=== PATIENT | female | born 1970 | race Caucasian/White ===

== ENCOUNTER 2019-10-17 01:58 | Inpatient (IN) ==
[2019-10-17] MEDS ORDERED: ALUM/MAG/SIMETH/LIDO VISC 1:1 30 ML BOTTLE PO STA (02:34)
[2019-10-17] MEDS ORDERED: ONDANSETRON 4 MG/2 ML VIAL IV STA ×2 (02:34→06:45)
[2019-10-17] MEDS ORDERED: HYDROmorphone 2 MG/1 ML VIAL IV STA ×3 (02:34→06:45)
[2019-10-17] MEDS ORDERED: SODIUM CHLORIDE 0.9% 1,000 ML IV STA (02:34)
[2019-10-17] MEDS ORDERED: PANTOPRAZOLE 40 MG VIAL IV STA (02:34)
[2019-10-17 03:01] LABS: Basophils # 0.1 10*3/uL (0.0-0.2); Basophils % 0.6 % (0.0-0.8); Eosinophils # 0.4 10*3/uL (0.0-0.87); Eosinophils % 1.4 % (0.00-10.9); Hematocrit 41.1 VOL% (35.7-47.0); Hemoglobin 14.4 GM/DL (12.0-16.0); Immature Granulocytes % 0.5 %; Immature Granulocytes Absolute 0.13 #; Lymphocytes # 3.6 10*3/uL (1.4-4.0); Lymphocytes % 14.3 % (21.3-54.2); Mean Corpuscular Volume 92.4 FL (87-102); Monocytes % 6.6 % (1.7-12.7); Neutrophils % 76.6 % (38.7-73.9); Platelet Count 186 T/CUMM (130-400); Red Blood Count 4.45 MC/CUMM (3.8-5.5); Red Cell Distribution Width 13.2 % (9.3-17.3)
[2019-10-17] MEDS ORDERED: VANCOMYCIN INJ 1,000 MG in SODIUM CHLORIDE 0.9% 250 ML IV STA (03:09)
[2019-10-17 03:35] LABS: Apearance,Urine CLEAR (Clear); Bacteria,Urine Occasional /HPF (Few); Blood, Urine Negative (Negative); Glucose,Urine (UA) >=500 mg/dL (Negative); Hyaline Casts,Urine 6 /LPF (0-3); Ketones,Urine 5 mg/dL (Negative); Mucus,Urine Occasional /LPF (Occasional); Nitrite,Urine Negative (Negative); Protein,Urine 100 MG/DL; RBC,Urine 2 /HPF (0-4); Squamous Epithelial Cell,Urine Occasional /HPF (0-10); Urine Color Yellow (Yellow); Urine Specific Gravity 1.036 (1.001-1.035); Urine Urobilinogen < 2.0 EU/DL (0.2-1.0); WBC,Urine 2 /HPF (0-6)
[2019-10-17 03:42] LABS: Bilirubin,Urine Small mg/dL (Negative)
[2019-10-17 03:53] LABS: Albumin 2.9 G/DL (3.4-5.0); Bilirubin,Total 0.8 MG/DL (0.2-1.0); Calcium 8.1 MG/DL (8.5-10.1); Osmolality,Calculated 262.9 MOS/KG (273-304); Total Protein 7.8 G/DL (6.4-8.3)
[2019-10-17] MEDS ORDERED: MAGNESIUM SULF RIDER 2 GM in PREMIX 1 EACH IV STA (03:58)
[2019-10-17] MEDS ORDERED: INSULIN REGULAR 100 UNIT/ML SUBCUT STA (04:44)
[2019-10-17] MEDS ORDERED: hydrALAZINE 20 MG/1 ML VIAL IV STA ×2 (04:45→04:59)
[2019-10-17 05:05] LABS: Eosinophils 2 % (0-10); Hypochromasia 2+; Lymphocytes 18 % (20-55); Platelet Estimate Normal; Segmented Neutrophils 73 % (50-85); Total Cells Counted 100
[2019-10-17] MEDS ORDERED: hydrALAZINE 20 MG/1 ML VIAL IV PRN (06:36)
[2019-10-17] MEDS ORDERED: GLUCAGON 1 MG VIAL IM PRN (06:36)
[2019-10-17] MEDS ORDERED: DEXTROSE 50% 25 GM/50 ML VIAL IV PRN ×2 (06:36→08:46)
[2019-10-17] MEDS ORDERED: SODIUM CHLORIDE 0.9% 1,000 ML IV SCH (07:00)
[2019-10-17 07:04] LABS: VLDL CHOLESTEROL 1024.4 MG/DL
[2019-10-17 07:06] LABS: Risk Ratio 13.72
[2019-10-17] MEDS: ENOXAPARIN 40 MG/0.4 ML SYRINGE SUBCUT SCH (08:30)
[2019-10-17] MEDS ORDERED: LACTATED RINGERS 1,000 ML IV SCH (08:30)
[2019-10-17] MEDS ORDERED: MAGNESIUM SULF RIDER 4 GM in PREMIX 1 EACH IV PRN (08:46)
[2019-10-17] MEDS ORDERED: ESTRADIOL 1 MG TABLET PO SCH (09:30)
[2019-10-17 09:52] LABS: Basophils # 0.1 10*3/uL (0.0-0.2); Basophils % 0.3 % (0.0-0.8); Eosinophils # 0.1 10*3/uL (0.0-0.87); Eosinophils % 0.4 % (0.00-10.9); Hematocrit 39.1 VOL% (35.7-47.0); Hemoglobin 13.6 GM/DL (12.0-16.0); Immature Granulocytes % 0.6 %; Immature Granulocytes Absolute 0.15 #; Lymphocytes # 2.4 10*3/uL (1.4-4.0); Lymphocytes % 8.7 % (21.3-54.2); Mean Corpuscular HGB Conc 34.8 GM/DL (32-36); Mean Corpuscular Volume 93.1 FL (87-102); Monocytes % 6.8 % (1.7-12.7); Neutrophils % 83.2 % (38.7-73.9); Platelet Count 186 T/CUMM (130-400); Red Cell Distribution Width 13.2 % (9.3-17.3); White Blood Count 27.1 T/CUMM (4-12)
[2019-10-17] MEDS ORDERED: INSULIN REGULAR 100 UNIT/ML SUBCUT SCH (10:00)
[2019-10-17 10:14] LABS: Eosinophils 1 % (0-10); Lymphocytes 10 % (20-55); Platelet Estimate Adequate; Segmented Neutrophils 79 % (50-85); Total Cells Counted 100
[2019-10-17] MEDS: THYROID 60 MG TABLET PO SCH (10:22)
[2019-10-17] MEDS: CIPROFLOXACIN INJ 400 MG in PREMIX 1 EACH IV SCH ×2 (10:22→22:20)
[2019-10-17] MEDS: ATORVASTATIN 40 MG TABLET PO SCH (10:23)
[2019-10-17] MEDS: FENOFIBRATE 160 MG TABLET PO SCH (10:23)
[2019-10-17] MEDS: HYDROmorphone 2 MG/1 ML VIAL IV PRN ×5 (10:24→23:20)
[2019-10-17] MEDS: OMEGA 3 ACID ETHYL ESTERS 1 GM CAPSULE PO SCH ×2 (10:24→20:24)
[2019-10-17] MEDS: ONDANSETRON 4 MG/2 ML VIAL IV PRN ×4 (10:25→23:30)
[2019-10-17] MEDS: INSULIN REGULAR DRIP 100 ML IV SCH (11:20)
[2019-10-17] MEDS: MEPERIDINE 25 MG/1 ML VIAL IV PRN ×3 (11:30→19:31)
[2019-10-17 11:55] LABS: ABG Base Excess -5.8 MMOL/L (-2.5-2.5); ABG HCO3 19.7 MMOL/L (20-26); ABG Oxygen Saturation 98.9 % (95-100); ABG PCO2 34.1 MM HG (35-48); ABG PH 7.353 (7.35-7.45); ABG TCO2 16.7 MMOL/L (23-27)
[2019-10-17] MEDS: metroNIDAZOLE INJ 500 MG in PREMIX 1 EACH IV SCH ×2 (11:58→18:19)
[2019-10-17] MEDS: carisoprodoL 350 MG TABLET PO SCH ×2 (14:14→20:25)
[2019-10-17] MEDS: DEXTROSE 5% LACTATED RINGERS 1,000 ML IV SCH ×3 (14:25→22:35)
[2019-10-17] MEDS ORDERED: INSULIN REGULAR 100 UNIT/ML IV ONE (16:11)
[2019-10-17 18:28] LABS: Albumin 2.5 G/DL (3.4-5.0); Bilirubin,Total 0.6 MG/DL (0.2-1.0); Calcium 7.5 MG/DL (8.5-10.1); Osmolality,Calculated 262.9 MOS/KG (273-304); Total Protein 6.6 G/DL (6.4-8.3)
[2019-10-17] MEDS: POTASSIUM CHLORIDE RIDER 10 MEQ in PREMIX 1 EACH IV PRN ×2 (19:31→21:31)
[2019-10-17] MEDS ORDERED: PROGESTERONE MICRONIZED 200 MG PO SCH (21:00)
[2019-10-17] MEDS ORDERED: POTASSIUM CHLORIDE 20 MEQ TABLET PO ONE (22:01)
[2019-10-18] MEDS: HYDROmorphone 2 MG/1 ML VIAL IV PRN ×7 (01:45→23:46)
[2019-10-18] MEDS: metroNIDAZOLE INJ 500 MG in PREMIX 1 EACH IV SCH ×3 (02:40→17:10)
[2019-10-18] MEDS: ONDANSETRON 4 MG/2 ML VIAL IV PRN ×4 (03:50→19:36)
[2019-10-18 03:53] LABS: Basophils # 0.1 10*3/uL (0.0-0.2); Basophils % 0.2 % (0.0-0.8); Eosinophils # 0.1 10*3/uL (0.0-0.87); Eosinophils % 0.2 % (0.00-10.9); Hematocrit 33.7 VOL% (35.7-47.0); Hemoglobin 11.4 GM/DL (12.0-16.0); Immature Granulocytes % 0.5 %; Lymphocytes # 2.4 10*3/uL (1.4-4.0); Lymphocytes % 11.6 % (21.3-54.2); Mean Corpuscular HGB Conc 33.8 GM/DL (32-36); Mean Corpuscular Volume 91.6 FL (87-102); Neutrophils % 82.5 % (38.7-73.9); Platelet Count 127 T/CUMM (130-400); Red Blood Count 3.68 MC/CUMM (3.8-5.5); Red Cell Distribution Width 13.5 % (9.3-17.3); White Blood Count 20.9 T/CUMM (4-12)
[2019-10-18] MEDS: MEPERIDINE 25 MG/1 ML VIAL IV PRN (04:10)
[2019-10-18 04:17] LABS: Risk Ratio 9.61
[2019-10-18 04:20] LABS: Albumin 1.9 G/DL (3.4-5.0); Alkaline Phosphatase 97 U/L (45-117); Blood Urea Nitrogen 5 MG/DL (7-18); Calcium 6.8 MG/DL (8.5-10.1); Estimated Glom Filtration Rate 106 ML/MIN; Glucose 461 MG/DL (74-106); Osmolality,Calculated 274.9 MOS/KG (273-304); Total Protein 5.6 G/DL (6.4-8.3)
[2019-10-18] MEDS: DEXTROSE 5% LACTATED RINGERS 1,000 ML IV SCH (04:28)
[2019-10-18 04:55] LABS: Anisocytosis 1+; Band Neutrophils 1 % (0-10); Lymphocytes 8 % (20-55); Platelet Estimate Adequate; Segmented Neutrophils 89 % (50-85); Target Cells Few; Total Cells Counted 100
[2019-10-18] MEDS: INSULIN REGULAR DRIP 100 ML IV SCH (05:17)
[2019-10-18] MEDS: MAGNESIUM SULF RIDER 2 GM in PREMIX 1 EACH IV PRN ×2 (05:29→08:11)
[2019-10-18 05:49] LABS: Apearance,Urine CLEAR (Clear); Bilirubin,Urine Negative (Negative); Blood, Urine Negative (Negative); Glucose,Urine (UA) 150 mg/dL (Negative); Ketones,Urine 20 mg/dL (Negative); Mucus,Urine Occasional /LPF (Occasional); Nitrite,Urine Negative (Negative); Protein,Urine 100 MG/DL; RBC,Urine 2 /HPF (0-4); Squamous Epithelial Cell,Urine Occasional /HPF (0-10); Urine Color Amber (Yellow); Urine Specific Gravity 1.027 (1.001-1.035); Urine Urobilinogen < 2.0 EU/DL (0.2-1.0); WBC,Urine 1 /HPF (0-6)
[2019-10-18] MEDS: ENOXAPARIN 40 MG/0.4 ML SYRINGE SUBCUT SCH (06:22)
[2019-10-18 06:32] LABS: Aspartate Amino Transferase 35 U/L (0-37)
[2019-10-18 06:53] LABS: Alanine Aminotransferase < 21 U/L (13-56)
[2019-10-18] MEDS: PROMETHAZINE 25 MG/1 ML VIAL IM PRN ×2 (07:12→12:14)
[2019-10-18] MEDS ORDERED: SODIUM PHOSPHATE INJ 40 MMOL in SODIUM CHLORIDE 0.9% 250 ML IV ONE (08:00)
[2019-10-18] MEDS: INSULIN GLARGINE 100 UNIT/ML SUBCUT SCH (08:11)
[2019-10-18] MEDS: OMEGA 3 ACID ETHYL ESTERS 1 GM CAPSULE PO SCH ×2 (08:11→21:20)
[2019-10-18] MEDS: ATORVASTATIN 40 MG TABLET PO SCH (08:11)
[2019-10-18] MEDS: INSULIN ASPART PROTAMINE/ASPART 70/30 100 UNIT/ML SUBCUT SCH ×3 (08:11→17:11)
[2019-10-18] MEDS: FENOFIBRATE 160 MG TABLET PO SCH (08:11)
[2019-10-18] MEDS: oxyCODONE/ACETAMINOPHEN 5-325 MG TABLET PO PRN (08:18)
[2019-10-18] MEDS: CIPROFLOXACIN INJ 400 MG in PREMIX 1 EACH IV SCH ×2 (08:33→21:20)
[2019-10-18] MEDS: carisoprodoL 350 MG TABLET PO SCH ×2 (08:33→21:20)
[2019-10-18] MEDS: LACTATED RINGERS 1,000 ML IV SCH ×2 (08:57→15:33)
[2019-10-18] MEDS: METOCLOPRAMIDE 10 MG/2 ML VIAL IV SCH ×3 (09:07→21:20)
[2019-10-18] MEDS: THYROID 60 MG TABLET PO SCH (09:07)
[2019-10-18] MEDS: INSULIN LISPRO 100 UNIT/ML SUBCUT SCH ×2 (11:45→17:11)
[2019-10-19] MEDS: LACTATED RINGERS 1,000 ML IV SCH ×3 (00:25→23:00)
[2019-10-19] MEDS: INSULIN LISPRO 100 UNIT/ML SUBCUT SCH ×4 (01:20→17:56)
[2019-10-19] MEDS: oxyCODONE/ACETAMINOPHEN 5-325 MG TABLET PO PRN ×3 (01:21→10:25)
[2019-10-19] MEDS: metroNIDAZOLE INJ 500 MG in PREMIX 1 EACH IV SCH ×3 (03:11→18:07)
[2019-10-19] MEDS: METOCLOPRAMIDE 10 MG/2 ML VIAL IV SCH ×4 (03:12→21:07)
[2019-10-19] MEDS: HYDROmorphone 2 MG/1 ML VIAL IV PRN ×5 (03:25→21:08)
[2019-10-19 04:34] LABS: Basophils # 0.1 10*3/uL (0.0-0.2); Basophils % 0.2 % (0.0-0.8); Eosinophils # 0.2 10*3/uL (0.0-0.87); Eosinophils % 0.6 % (0.00-10.9); Hematocrit 30.7 VOL% (35.7-47.0); Hemoglobin 10.4 GM/DL (12.0-16.0); Immature Granulocytes % 1.2 %; Lymphocytes % 11.9 % (21.3-54.2); Mean Corpuscular HGB Conc 33.9 GM/DL (32-36); Mean Corpuscular Volume 92.2 FL (87-102); Monocytes % 5.2 % (1.7-12.7); Neutrophils % 80.9 % (38.7-73.9); Platelet Count 157 T/CUMM (130-400); Red Blood Count 3.33 MC/CUMM (3.8-5.5); Red Cell Distribution Width 13.5 % (9.3-17.3); White Blood Count 25.4 T/CUMM (4-12)
[2019-10-19 04:53] LABS: Eosinophils 1 % (0-10); Hypochromasia 1+; Lymphocytes 7 % (20-55); Platelet Estimate Adequate; Segmented Neutrophils 88 % (50-85); Total Cells Counted 100
[2019-10-19 04:56] LABS: Albumin 1.8 G/DL (3.4-5.0); Bilirubin,Total 0.7 MG/DL (0.2-1.0); Calcium 7.9 MG/DL (8.5-10.1); Osmolality,Calculated 269.2 MOS/KG (273-304); Total Protein 5.6 G/DL (6.4-8.3)
[2019-10-19] MEDS: POTASSIUM CHLORIDE RIDER 10 MEQ in PREMIX 1 EACH IV PRN ×6 (06:03→23:19)
[2019-10-19] MEDS: ENOXAPARIN 40 MG/0.4 ML SYRINGE SUBCUT SCH (06:03)
[2019-10-19] MEDS: INSULIN ASPART PROTAMINE/ASPART 70/30 100 UNIT/ML SUBCUT SCH ×3 (08:05→17:46)
[2019-10-19] MEDS: CIPROFLOXACIN INJ 400 MG in PREMIX 1 EACH IV SCH ×2 (10:14→21:08)
[2019-10-19] MEDS: OMEGA 3 ACID ETHYL ESTERS 1 GM CAPSULE PO SCH ×2 (10:14→21:07)
[2019-10-19] MEDS: FENOFIBRATE 160 MG TABLET PO SCH (10:14)
[2019-10-19] MEDS: INSULIN GLARGINE 100 UNIT/ML SUBCUT SCH (10:15)
[2019-10-19] MEDS: THYROID 60 MG TABLET PO SCH (10:15)
[2019-10-19] MEDS: ATORVASTATIN 40 MG TABLET PO SCH (10:15)
[2019-10-19] MEDS: carisoprodoL 350 MG TABLET PO SCH ×2 (10:26→21:10)
[2019-10-20] MEDS: HYDROmorphone 2 MG/1 ML VIAL IV PRN ×7 (00:12→23:52)
[2019-10-20] MEDS: INSULIN LISPRO 100 UNIT/ML SUBCUT SCH ×4 (00:21→17:29)
[2019-10-20] MEDS: metroNIDAZOLE INJ 500 MG in PREMIX 1 EACH IV SCH ×3 (02:56→17:33)
[2019-10-20] MEDS: oxyCODONE/ACETAMINOPHEN 5-325 MG TABLET PO PRN ×4 (03:02→21:05)
[2019-10-20] MEDS: METOCLOPRAMIDE 10 MG/2 ML VIAL IV SCH ×4 (03:06→21:05)
[2019-10-20] MEDS: ENOXAPARIN 40 MG/0.4 ML SYRINGE SUBCUT SCH (06:42)
[2019-10-20 09:14] LABS: Basophils # 0.1 10*3/uL (0.0-0.2); Basophils % 0.2 % (0.0-0.8); Eosinophils # 0.6 10*3/uL (0.0-0.87); Hematocrit 28.1 VOL% (35.7-47.0); Hemoglobin 9.4 GM/DL (12.0-16.0); Immature Granulocytes % 0.9 %; Immature Granulocytes Absolute 0.27 #; Lymphocytes % 13.7 % (21.3-54.2); Mean Corpuscular HGB Conc 33.5 GM/DL (32-36); Mean Corpuscular Volume 93.7 FL (87-102); Monocytes % 6.1 % (1.7-12.7); Neutrophils % 77.1 % (38.7-73.9); Platelet Count 175 T/CUMM (130-400); Red Cell Distribution Width 14.2 % (9.3-17.3); White Blood Count 29.1 T/CUMM (4-12)
[2019-10-20] MEDS: INSULIN GLARGINE 100 UNIT/ML SUBCUT SCH (09:15)
[2019-10-20] MEDS: OMEGA 3 ACID ETHYL ESTERS 1 GM CAPSULE PO SCH ×2 (09:17→21:04)
[2019-10-20] MEDS: THYROID 60 MG TABLET PO SCH (09:17)
[2019-10-20] MEDS: ATORVASTATIN 40 MG TABLET PO SCH (09:17)
[2019-10-20] MEDS: CIPROFLOXACIN INJ 400 MG in PREMIX 1 EACH IV SCH ×2 (09:21→21:06)
[2019-10-20] MEDS: INSULIN ASPART PROTAMINE/ASPART 70/30 100 UNIT/ML SUBCUT SCH ×3 (09:23→16:29)
[2019-10-20 09:24] LABS: Calcium 8.3 MG/DL (8.5-10.1); Osmolality,Calculated 271.7 MOS/KG (273-304)
[2019-10-20] MEDS: FENOFIBRATE 160 MG TABLET PO SCH (09:31)
[2019-10-20] MEDS: carisoprodoL 350 MG TABLET PO SCH ×2 (09:32→21:04)
[2019-10-20 09:41] LABS: Eosinophils 6 % (0-10); Hypochromasia 1+; Lymphocytes 13 % (20-55); Platelet Estimate Adequate; Segmented Neutrophils 75 % (50-85); Total Cells Counted 100
[2019-10-20] MEDS: POTASSIUM CHLORIDE RIDER 10 MEQ in PREMIX 1 EACH IV PRN ×5 (10:52→19:37)
[2019-10-20] MEDS: LACTATED RINGERS 1,000 ML IV SCH ×2 (15:20→23:56)
[2019-10-21] MEDS: POTASSIUM CHLORIDE RIDER 10 MEQ in PREMIX 1 EACH IV PRN ×8 (00:16→22:47)
[2019-10-21] MEDS: metroNIDAZOLE INJ 500 MG in PREMIX 1 EACH IV SCH ×3 (02:20→17:49)
[2019-10-21] MEDS: INSULIN LISPRO 100 UNIT/ML SUBCUT SCH ×4 (02:48→17:45)
[2019-10-21] MEDS: HYDROmorphone 2 MG/1 ML VIAL IV PRN ×5 (03:26→20:55)
[2019-10-21] MEDS: METOCLOPRAMIDE 10 MG/2 ML VIAL IV SCH ×4 (03:27→20:55)
[2019-10-21 05:26] LABS: Basophils # 0.1 10*3/uL (0.0-0.2); Basophils % 0.3 % (0.0-0.8); Eosinophils # 0.5 10*3/uL (0.0-0.87); Eosinophils % 1.7 % (0.00-10.9); Hematocrit 29.9 VOL% (35.7-47.0); Hemoglobin 9.9 GM/DL (12.0-16.0); Immature Granulocytes % 0.8 %; Immature Granulocytes Absolute 0.23 #; Lymphocytes # 3.9 10*3/uL (1.4-4.0); Lymphocytes % 13.8 % (21.3-54.2); Mean Corpuscular HGB Conc 33.1 GM/DL (32-36); Mean Corpuscular Volume 90.6 FL (87-102); Mean Platelet Volume 14.7 FL (9.6-12.0); Monocytes % 8.2 % (1.7-12.7); Neutrophils % 75.2 % (38.7-73.9); Platelet Count 216 T/CUMM (130-400); Red Cell Distribution Width 14.2 % (9.3-17.3); White Blood Count 27.9 T/CUMM (4-12)
[2019-10-21 05:52] LABS: Band Neutrophils 2 % (0-10); Eosinophils 3 % (0-10); Hypochromasia 1+; Lymphocytes 13 % (20-55); Microcytosis Slight; Platelet Estimate Adequate; Segmented Neutrophils 76 % (50-85); Total Cells Counted 100
[2019-10-21 06:08] LABS: Calcium 8.5 MG/DL (8.5-10.1); Osmolality,Calculated 272.5 MOS/KG (273-304)
[2019-10-21] MEDS: ENOXAPARIN 40 MG/0.4 ML SYRINGE SUBCUT SCH (06:21)
[2019-10-21] MEDS: oxyCODONE/ACETAMINOPHEN 5-325 MG TABLET PO PRN (06:37)
[2019-10-21] MEDS: LACTATED RINGERS 1,000 ML IV SCH ×3 (08:00→23:14)
[2019-10-21] MEDS: ATORVASTATIN 40 MG TABLET PO SCH (09:04)
[2019-10-21] MEDS: FENOFIBRATE 160 MG TABLET PO SCH (09:04)
[2019-10-21] MEDS: OMEGA 3 ACID ETHYL ESTERS 1 GM CAPSULE PO SCH ×2 (09:04→20:54)
[2019-10-21] MEDS: THYROID 60 MG TABLET PO SCH (09:04)
[2019-10-21] MEDS: CIPROFLOXACIN INJ 400 MG in PREMIX 1 EACH IV SCH ×2 (09:12→21:00)
[2019-10-21] MEDS: POTASSIUM CHLORIDE 20 MEQ TABLET PO SCH ×3 (09:12→17:45)
[2019-10-21] MEDS: INSULIN GLARGINE 100 UNIT/ML SUBCUT SCH (09:18)
[2019-10-21] MEDS: INSULIN ASPART PROTAMINE/ASPART 70/30 100 UNIT/ML SUBCUT SCH ×4 (09:20→17:45)
[2019-10-21] MEDS: carisoprodoL 350 MG TABLET PO SCH ×2 (10:45→22:47)
[2019-10-22] MEDS: POTASSIUM CHLORIDE RIDER 10 MEQ in PREMIX 1 EACH IV PRN ×5 (01:03→12:24)
[2019-10-22] MEDS: HYDROmorphone 2 MG/1 ML VIAL IV PRN ×2 (01:41→05:49)
[2019-10-22] MEDS: INSULIN LISPRO 100 UNIT/ML SUBCUT SCH ×5 (01:41→23:38)
[2019-10-22] MEDS: METOCLOPRAMIDE 10 MG/2 ML VIAL IV SCH ×4 (02:49→21:09)
[2019-10-22] MEDS: metroNIDAZOLE INJ 500 MG in PREMIX 1 EACH IV SCH ×3 (02:50→17:25)
[2019-10-22 03:47] LABS: Apearance,Urine CLEAR (Clear); Bilirubin,Urine Negative (Negative); Blood, Urine Negative (Negative); Glucose,Urine (UA) Negative (Negative); Ketones,Urine Negative (Negative); Nitrite,Urine Negative (Negative); Protein,Urine Negative; RBC,Urine <1 /HPF (0-4); Urine Color Straw (Yellow); Urine Specific Gravity 1.008 (1.001-1.035); Urine Urobilinogen < 2.0 EU/DL (0.2-1.0)
[2019-10-22] MEDS: LACTATED RINGERS 1,000 ML IV SCH ×3 (03:52→17:23)
[2019-10-22 04:04] LABS: Basophils # 0.1 10*3/uL (0.0-0.2); Basophils % 0.3 % (0.0-0.8); Eosinophils # 0.5 10*3/uL (0.0-0.87); Eosinophils % 2.3 % (0.00-10.9); Hematocrit 28.1 VOL% (35.7-47.0); Hemoglobin 9.5 GM/DL (12.0-16.0); Immature Granulocytes % 1.6 %; Immature Granulocytes Absolute 0.36 #; Lymphocytes # 4.5 10*3/uL (1.4-4.0); Lymphocytes % 19.6 % (21.3-54.2); Mean Corpuscular HGB Conc 33.8 GM/DL (32-36); Mean Corpuscular Volume 92.1 FL (87-102); Mean Platelet Volume 14.1 FL (9.6-12.0); Monocytes % 11.6 % (1.7-12.7); NRBC # 0.04 10*3/uL; Neutrophils % 64.6 % (38.7-73.9); Platelet Count 228 T/CUMM (130-400); Red Blood Count 3.05 MC/CUMM (3.8-5.5); Red Cell Distribution Width 14.6 % (9.3-17.3); White Blood Count 22.9 T/CUMM (4-12)
[2019-10-22 04:36] LABS: Blood Urea Nitrogen < 1 MG/DL (7-18); Calcium 9.1 MG/DL (8.5-10.1); Estimated Glom Filtration Rate 115 ML/MIN; Glucose 80 MG/DL (74-106); Osmolality,Calculated 268.2 MOS/KG (273-304)
[2019-10-22 04:58] LABS: Band Neutrophils 1 % (0-10); Eosinophils 1 % (0-10); Lymphocytes 18 % (20-55); Platelet Estimate Adequate; Segmented Neutrophils 71 % (50-85); Total Cells Counted 100
[2019-10-22 04:59] LABS: Hypochromasia 1+; Microcytosis Slight
[2019-10-22] MEDS: ENOXAPARIN 40 MG/0.4 ML SYRINGE SUBCUT SCH (06:42)
[2019-10-22] MEDS: OMEGA 3 ACID ETHYL ESTERS 1 GM CAPSULE PO SCH ×2 (08:26→21:09)
[2019-10-22] MEDS: ATORVASTATIN 40 MG TABLET PO SCH (08:26)
[2019-10-22] MEDS: FENOFIBRATE 160 MG TABLET PO SCH (08:26)
[2019-10-22] MEDS: INSULIN GLARGINE 100 UNIT/ML SUBCUT SCH (08:26)
[2019-10-22] MEDS: INSULIN ASPART PROTAMINE/ASPART 70/30 100 UNIT/ML SUBCUT SCH ×3 (08:26→17:26)
[2019-10-22] MEDS: THYROID 60 MG TABLET PO SCH (08:27)
[2019-10-22] MEDS: carisoprodoL 350 MG TABLET PO SCH ×2 (08:27→21:09)
[2019-10-22] MEDS: MAGNESIUM SULF RIDER 2 GM in PREMIX 1 EACH IV PRN (08:30)
[2019-10-22] MEDS: oxyCODONE/ACETAMINOPHEN 5-325 MG TABLET PO PRN ×3 (10:14→21:09)
[2019-10-22] MEDS: CIPROFLOXACIN INJ 400 MG in PREMIX 1 EACH IV SCH ×2 (10:40→21:09)
[2019-10-23] MEDS: oxyCODONE/ACETAMINOPHEN 5-325 MG TABLET PO PRN ×3 (01:08→10:53)
[2019-10-23] MEDS: LACTATED RINGERS 1,000 ML IV SCH ×4 (01:20→11:11)
[2019-10-23] MEDS: METOCLOPRAMIDE 10 MG/2 ML VIAL IV SCH ×3 (02:07→15:07)
[2019-10-23] MEDS: metroNIDAZOLE INJ 500 MG in PREMIX 1 EACH IV SCH ×2 (02:09→11:11)
[2019-10-23 05:46] LABS: Basophils # 0.1 10*3/uL (0.0-0.2); Basophils % 0.5 % (0.0-0.8); Eosinophils # 0.5 10*3/uL (0.0-0.87); Eosinophils % 2.4 % (0.00-10.9); Hematocrit 29.7 VOL% (35.7-47.0); Hemoglobin 9.8 GM/DL (12.0-16.0); Immature Granulocytes % 4.9 %; Immature Granulocytes Absolute 1.02 #; Lymphocytes # 5.7 10*3/uL (1.4-4.0); Lymphocytes % 27.4 % (21.3-54.2); Mean Corpuscular Volume 93.4 FL (87-102); Mean Platelet Volume 14.1 FL (9.6-12.0); Monocytes % 13.4 % (1.7-12.7); Neutrophils % 51.4 % (38.7-73.9); Platelet Count 292 T/CUMM (130-400); Red Blood Count 3.18 MC/CUMM (3.8-5.5); Red Cell Distribution Width 14.5 % (9.3-17.3); White Blood Count 20.9 T/CUMM (4-12)
[2019-10-23 06:10] LABS: Calcium 8.6 MG/DL (8.5-10.1); Osmolality,Calculated 278.5 MOS/KG (273-304)
[2019-10-23 06:20] LABS: Eosinophils 4 % (0-10); Hypochromasia 1+; Lymphocytes 26 % (20-55); Microcytosis Slight; Platelet Estimate Adequate; Segmented Neutrophils 59 % (50-85); Total Cells Counted 100
[2019-10-23] MEDS: POTASSIUM CHLORIDE RIDER 10 MEQ in PREMIX 1 EACH IV PRN (06:43)
[2019-10-23] MEDS: INSULIN LISPRO 100 UNIT/ML SUBCUT SCH ×2 (06:43→12:05)
[2019-10-23] MEDS: ENOXAPARIN 40 MG/0.4 ML SYRINGE SUBCUT SCH (07:39)
[2019-10-23] MEDS ORDERED: POTASSIUM CHLORIDE 20 MEQ TABLET PO ONE (08:30)
[2019-10-23] MEDS ORDERED: carvediloL 6.25 MG TABLET PO SCH (09:00)
[2019-10-23] MEDS: FENOFIBRATE 160 MG TABLET PO SCH (09:21)
[2019-10-23] MEDS: OMEGA 3 ACID ETHYL ESTERS 1 GM CAPSULE PO SCH (09:22)
[2019-10-23] MEDS: ATORVASTATIN 40 MG TABLET PO SCH (09:23)
[2019-10-23] MEDS: THYROID 60 MG TABLET PO SCH (09:23)
[2019-10-23] MEDS: carisoprodoL 350 MG TABLET PO SCH (09:24)
[2019-10-23] MEDS: INSULIN ASPART PROTAMINE/ASPART 70/30 100 UNIT/ML SUBCUT SCH ×2 (09:25→12:05)
[2019-10-23] MEDS: INSULIN GLARGINE 100 UNIT/ML SUBCUT SCH (09:25)
[2019-10-23] MEDS: CIPROFLOXACIN INJ 400 MG in PREMIX 1 EACH IV SCH (09:26)
[2019-10-23 12:01] VITALS: BP 166/105
== END 2019-10-23 15:35 | disposition home or self-care (01) | DRG 439 ==
LOC: SUATTDRO → N.ED 01:58 → N.EDINP 07:58 → SUATTDRO 07:58 → N.3E 08:24 → N.ICU 08:55 → N.3E 10-18 12:25
PROVIDERS: ADMIT Internal Medicine; ATTEND Internal Medicine

== ENCOUNTER 2019-11-18 11:44 | Inpatient (IN) ==
[~2019-11-18 11:44] MED LIST: CLOPIDOGREL 300 MG TABLET ONE; EPTIFIBATIDE 20,000 MCG/10 ML VIAL ONE; HEPARIN 5,000 UNIT/1 ML VIAL ONE; MIDAZOLAM 2 MG/2 ML VIAL ONE; fentaNYL 100 MCG/2 ML VIAL ONE
[2019-11-18 11:53] LABS: Basophils # 0.1 10*3/uL (0.0-0.2); Basophils % 0.5 % (0.0-0.8); Eosinophils # 0.4 10*3/uL (0.0-0.87); Eosinophils % 2.1 % (0.00-10.9); Hematocrit 33.6 VOL% (35.7-47.0); Hemoglobin 10.8 GM/DL (12.0-16.0); Immature Granulocytes % 0.5 %; Immature Granulocytes Absolute 0.09 #; Lymphocytes # 4.2 10*3/uL (1.4-4.0); Mean Corpuscular HGB Conc 32.1 GM/DL (32-36); Mean Corpuscular Volume 95.2 FL (87-102); Mean Platelet Volume 12.4 FL (9.6-12.0); Monocytes % 6.4 % (1.7-12.7); Neutrophils % 67.5 % (38.7-73.9); Platelet Count 329 T/CUMM (130-400); Red Blood Count 3.53 MC/CUMM (3.8-5.5); Red Cell Distribution Width 13.7 % (9.3-17.3); White Blood Count 18.3 T/CUMM (4-12)
[2019-11-18] MEDS ORDERED: DEXTROSE 50% 25 GM/50 ML VIAL IV PRN (12:01)
[2019-11-18] MEDS ORDERED: GLUCAGON 1 MG VIAL IM PRN (12:01)
[2019-11-18 12:04] LABS: INR 1.1; PT Patient Result 11.3 SECS (9.8-11.9); Partial Thromboplastin Time 95.6 SECS (23.9-33.8)
[2019-11-18 12:10] LABS: Calcium 8.6 MG/DL (8.5-10.1); Osmolality,Calculated 279.4 MOS/KG (273-304)
[2019-11-18] MEDS ORDERED: SODIUM CHLORIDE 0.9% 1,000 ML IV SCH (12:30)
[2019-11-18 12:31] LABS: Band Neutrophils 4 % (0-10); Eosinophils 2 % (0-10); Lymphocytes 20 % (20-55); Platelet Estimate Normal; Segmented Neutrophils 66 % (50-85); Total Cells Counted 100
[2019-11-18 12:32] LABS: Anisocytosis 1+
[2019-11-18 12:33] LABS: Macrocytosis Slight
[2019-11-18] MEDS ORDERED: MAGNESIUM SULF RIDER 2 GM in PREMIX 1 EACH IV PRN (12:37)
[2019-11-18] MEDS ORDERED: guaiFENesin/DM ER 600-30 MG TABLET PO PRN (12:37)
[2019-11-18] MEDS ORDERED: BISACODYL 5 MG TABLET PO PRN (12:37)
[2019-11-18] MEDS ORDERED: ACETAMINOPHEN 325 MG TABLET PO PRN (12:37)
[2019-11-18] MEDS ORDERED: ONDANSETRON 4 MG/2 ML VIAL IV PRN (12:37)
[2019-11-18] MEDS ORDERED: MAGNESIUM SULF RIDER 4 GM in PREMIX 1 EACH IV PRN (12:37)
[2019-11-18] MEDS ORDERED: ZALEPLON 5 MG CAPSULE PO PRN (12:37)
[2019-11-18] MEDS ORDERED: POTASSIUM CHLORIDE 20 MEQ TABLET PO PRN (12:37)
[2019-11-18] MEDS ORDERED: hydrALAZINE 20 MG/1 ML VIAL IV PRN (12:37)
[2019-11-18] MEDS ORDERED: diphenhydrAMINE CAP 25 MG CAPSULE PO PRN (12:37)
[2019-11-18] MEDS ORDERED: DOCUSATE SODIUM 100 MG CAPSULE PO PRN (12:37)
[2019-11-18] MEDS ORDERED: ALUMINUM/MAGNES/SIMETH MAX STR 30 ML UDCUP PO PRN (12:37)
[2019-11-18] MEDS ORDERED: NICOTINE 21 MG/24 HR PATCH TRANSDERM PRN (12:37)
[2019-11-18] MEDS ORDERED: POTASSIUM CHLORIDE 20 MEQ TABLET PO ONE (12:49)
[2019-11-18] MEDS ORDERED: MAGNESIUM SULF RIDER 2 GM in PREMIX 1 EACH IV ONE (12:49)
[2019-11-18] MEDS: INSULIN ASPART PROTAMINE/ASPART 70/30 100 UNIT/ML SUBCUT SCH (16:50)
[2019-11-18] MEDS: INSULIN REGULAR 100 UNIT/ML SUBCUT SCH ×2 (16:50→22:50)
[2019-11-18] MEDS: MORPHINE 4 MG/1 ML VIAL IV PRN ×2 (18:30→21:49)
[2019-11-18 20:05] LABS: Barbiturates Screen,Urine Negative (Negative); Benzodiazepines Screen,Urine Positive (Negative); Cannabinoid Screen,Urine Negative (Negative); Opiate Screen,Urine Positive (Negative); Phencyclidine Screen,Urine Negative (Negative)
[2019-11-18] MEDS: OMEGA 3 ACID ETHYL ESTERS 1 GM CAPSULE PO SCH (20:26)
[2019-11-18] MEDS: ATORVASTATIN 40 MG TABLET PO SCH (20:27)
[2019-11-18] MEDS: carvediloL 6.25 MG TABLET PO SCH (20:27)
[2019-11-18] MEDS ORDERED: TICAGRELOR 90 MG TABLET PO SCH (21:00)
[2019-11-19 04:50] LABS: Basophils # 0.1 10*3/uL (0.0-0.2); Basophils % 0.7 % (0.0-0.8); Eosinophils # 0.4 10*3/uL (0.0-0.87); Eosinophils % 2.7 % (0.00-10.9); Hematocrit 38.6 VOL% (35.7-47.0); Hemoglobin 12.2 GM/DL (12.0-16.0); Immature Granulocytes % 0.5 %; Immature Granulocytes Absolute 0.06 #; Lymphocytes % 39.2 % (21.3-54.2); Mean Corpuscular HGB Conc 31.6 GM/DL (32-36); Mean Corpuscular Volume 95.8 FL (87-102); Mean Platelet Volume 12.6 FL (9.6-12.0); Monocytes % 7.2 % (1.7-12.7); Neutrophils % 49.7 % (38.7-73.9); Platelet Count 353 T/CUMM (130-400); Red Blood Count 4.03 MC/CUMM (3.8-5.5); Red Cell Distribution Width 13.9 % (9.3-17.3); White Blood Count 12.9 T/CUMM (4-12)
[2019-11-19] MEDS: MORPHINE 4 MG/1 ML VIAL IV PRN ×3 (05:08→23:20)
[2019-11-19 05:30] LABS: CKMB % 7.9 %; Osmolality,Calculated 274.7 MOS/KG (273-304); Risk Ratio 4.61; Thyroid Stimulating Hormone 0.381 uIU/ml (0.358-3.74)
[2019-11-19 05:32] LABS: Troponin I 2.3 NG/ML (0.00-0.045)
[2019-11-19 05:33] LABS: Platelet Estimate Normal
[2019-11-19 05:40] LABS: Bacteria,Urine Moderate /HPF (Few); Bilirubin,Urine Negative (Negative); Blood, Urine Negative (Negative); Glucose,Urine (UA) Negative (Negative); Ketones,Urine Negative (Negative); Mucus,Urine Occasional /LPF (Occasional); Nitrite,Urine Negative (Negative); Protein,Urine Negative; RBC,Urine 1 /HPF (0-4); Squamous Epithelial Cell,Urine Occasional /HPF (0-10); Urine Appearance CLEAR (Clear); Urine Color Yellow (Yellow); Urine Specific Gravity 1.012 (1.001-1.035); Urine Urobilinogen < 2.0 EU/DL (0.2-1.0); WBC,Urine 1 /HPF (0-6)
[2019-11-19] MEDS: THYROID 60 MG TABLET PO SCH (05:57)
[2019-11-19] MEDS: PANTOPRAZOLE 40 MG TABLET PO SCH (05:57)
[2019-11-19] MEDS: INSULIN REGULAR 100 UNIT/ML SUBCUT SCH ×4 (08:25→22:19)
[2019-11-19] MEDS: ESTRADIOL 2 MG TABLET PO SCH (08:42)
[2019-11-19] MEDS: OMEGA 3 ACID ETHYL ESTERS 1 GM CAPSULE PO SCH ×2 (08:42→21:12)
[2019-11-19] MEDS: FENOFIBRATE 160 MG TABLET PO SCH (08:42)
[2019-11-19] MEDS: ASPIRIN EC 81 MG TABLET PO SCH (08:43)
[2019-11-19] MEDS: carvediloL 6.25 MG TABLET PO SCH ×2 (08:43→21:12)
[2019-11-19] MEDS: INSULIN ASPART PROTAMINE/ASPART 70/30 100 UNIT/ML SUBCUT SCH ×3 (08:43→17:59)
[2019-11-19] MEDS: TICAGRELOR 90 MG TABLET PO SCH ×2 (08:43→21:12)
[2019-11-19] MEDS: INSULIN GLARGINE 100 UNIT/ML SUBCUT SCH (14:21)
[2019-11-19] MEDS: ATORVASTATIN 40 MG TABLET PO SCH (21:12)
[2019-11-20] MEDS: THYROID 60 MG TABLET PO SCH (06:07)
[2019-11-20] MEDS: PANTOPRAZOLE 40 MG TABLET PO SCH (06:07)
[2019-11-20 07:22] LABS: Blood Urea Nitrogen 10 MG/DL (7-18); Calcium 9.2 MG/DL (8.5-10.1); Estimated Glom Filtration Rate 89 ML/MIN; Glucose 116 MG/DL (74-106); Osmolality,Calculated 276.5 MOS/KG (273-304)
[2019-11-20] MEDS: INSULIN REGULAR 100 UNIT/ML SUBCUT SCH ×3 (08:26→16:08)
[2019-11-20] MEDS: carvediloL 6.25 MG TABLET PO SCH (10:00)
[2019-11-20] MEDS: FENOFIBRATE 160 MG TABLET PO SCH (10:00)
[2019-11-20] MEDS: ASPIRIN EC 81 MG TABLET PO SCH (10:00)
[2019-11-20] MEDS: ESTRADIOL 2 MG TABLET PO SCH (10:00)
[2019-11-20] MEDS: TICAGRELOR 90 MG TABLET PO SCH (10:00)
[2019-11-20] MEDS: INSULIN ASPART PROTAMINE/ASPART 70/30 100 UNIT/ML SUBCUT SCH ×2 (10:00→12:23)
[2019-11-20] MEDS: OMEGA 3 ACID ETHYL ESTERS 1 GM CAPSULE PO SCH (10:00)
[2019-11-20] MEDS: INSULIN GLARGINE 100 UNIT/ML SUBCUT SCH (10:05)
[2019-11-20 16:22] VITALS: BP 120/62
== END 2019-11-20 17:00 | disposition home or self-care (01) | DRG 247 ==
LOC: N.CL 11:44 → N.ICU 12:34 → EDSTATUS 14:30 → N.TELEN 11-19 13:42 → N.ICU 11-19 13:55 → N.TELEN 11-19 16:20
PROVIDERS: ADMIT Internal Medicine Cardiovascular Disease; ATTEND Internal Medicine Cardiovascular Disease
PROC: CLCCHCL (ICD-10-PCS; 2019-11-18 14:45)

== ENCOUNTER 2020-06-28 16:29 | Observation (INO) ==
[2020-06-28] MEDS ORDERED: ASPIRIN EC 325 MG TABLET PO STA (17:31)
[2020-06-28 17:41] LABS: Basophils # 0.1 10*3/uL (0.0-0.2); Eosinophils # 0.6 10*3/uL (0.0-0.87); Eosinophils % 5.3 % (0.00-10.9); Hematocrit 36.7 VOL% (35.7-47.0); Hemoglobin 11.9 GM/DL (12.0-16.0); Immature Granulocytes % 0.3 %; Immature Granulocytes Absolute 0.03 #; Lymphocytes # 4.5 10*3/uL (1.4-4.0); Lymphocytes % 41.9 % (21.3-54.2); Mean Corpuscular HGB Conc 32.4 GM/DL (32-36); Mean Corpuscular Volume 93.6 FL (87-102); Mean Platelet Volume 13.1 FL (9.6-12.0); Monocytes % 6.1 % (1.7-12.7); Neutrophils % 45.4 % (38.7-73.9); Platelet Count 306 T/CUMM (130-400); Red Blood Count 3.92 MC/CUMM (3.8-5.5); Red Cell Distribution Width 14.6 % (9.3-17.3); White Blood Count 10.7 T/CUMM (4-12)
[2020-06-28 17:51] LABS: INR 0.9; PT Patient Result 10.4 SECS (10.5-12.0); Partial Thromboplastin Time 21.6 SECS (23.9-33.8)
[2020-06-28 18:06] LABS: Alanine Aminotransferase 28 U/L (13-56); Alkaline Phosphatase 62 U/L (45-117); Aspartate Amino Transferase 25 U/L (0-37); Bilirubin,Total < 0.39 MG/DL (0.2-1.0); Blood Urea Nitrogen 12 MG/DL (7-18); Calcium 8.5 MG/DL (8.5-10.1); Carbon Dioxide 25 MMOL/L (21-32); Estimated Glom Filtration Rate 105 ML/MIN; Glucose 126 MG/DL (74-106); Osmolality,Calculated 284.1 MOS/KG (273-304); Potassium 3.4 MMOL/L (3.5-5.1); Sodium 142 MMOL/L (136-145); Total Protein 6.4 G/DL (6.4-8.2)
[2020-06-28 18:08] LABS: Eosinophils 5 % (0-10); Lymphocytes 49 % (20-55); Segmented Neutrophils 43 % (50-85); Total Cells Counted 100
[2020-06-28 18:09] LABS: Platelet Estimate Adequate
[2020-06-28] MEDS ORDERED: DEXTROSE 50% 25 GM/50 ML VIAL IV PRN ×2 (18:39→18:50)
[2020-06-28] MEDS ORDERED: ACETAMINOPHEN 325 MG TABLET PO PRN (18:39)
[2020-06-28] MEDS ORDERED: GLUCAGON 1 MG VIAL IM PRN ×2 (18:39→18:50)
[2020-06-28] MEDS ORDERED: ONDANSETRON 4 MG/2 ML VIAL IV PRN (18:39)
[2020-06-28 18:45] LABS: Bacteria,Urine Occasional /HPF (Few); Bilirubin,Urine Negative (Negative); Blood, Urine Negative (Negative); Glucose,Urine (UA) Negative (Negative); Ketones,Urine 5 mg/dL (Negative); Mucus,Urine Occasional /LPF (Occasional); Nitrite,Urine Negative (Negative); Protein,Urine Negative; RBC,Urine 1 /HPF (0-4); Squamous Epithelial Cell,Urine Occasional /HPF (0-10); Urine Appearance Slightly Hazy (Clear); Urine Color Yellow (Yellow); Urine Specific Gravity 1.021 (1.001-1.035); Urine Urobilinogen < 2.0 EU/DL (0.2-1.0)
[2020-06-28] MEDS ORDERED: ENOXAPARIN 40 MG/0.4 ML SYRINGE SUBCUT SCH (19:00)
[2020-06-28 19:07] LABS: Barbiturates Screen,Urine Negative (Negative); Benzodiazepines Screen,Urine Negative (Negative); Cannabinoid Screen,Urine Negative (Negative); Opiate Screen,Urine Positive (Negative); Phencyclidine Screen,Urine Negative (Negative)
[2020-06-28 19:46] LABS: Risk Ratio 5.85; VLDL CHOLESTEROL 73.8 MG/DL
[2020-06-28] MEDS: ATORVASTATIN 80 MG TABLET PO SCH (21:03)
[2020-06-28] MEDS: carvediloL 6.25 MG TABLET PO SCH (21:03)
[2020-06-28] MEDS: TICAGRELOR 90 MG TABLET PO SCH (21:03)
[2020-06-28] MEDS: INSULIN REGULAR 100 UNIT/ML SUBCUT SCH (21:04)
[2020-06-29 03:48] LABS: Basophils # 0.1 10*3/uL (0.0-0.2); Eosinophils # 0.7 10*3/uL (0.0-0.87); Eosinophils % 6.3 % (0.00-10.9); Immature Granulocytes % 0.2 %; Immature Granulocytes Absolute 0.02 #; Lymphocytes # 5.8 10*3/uL (1.4-4.0); Lymphocytes % 49.1 % (21.3-54.2); Mean Corpuscular HGB Conc 31.4 GM/DL (32-36); Mean Platelet Volume 12.9 FL (9.6-12.0); Monocytes % 8.4 % (1.7-12.7); Platelet Count 302 T/CUMM (130-400); Red Blood Count 3.61 MC/CUMM (3.8-5.5); Red Cell Distribution Width 14.8 % (9.3-17.3); White Blood Count 11.8 T/CUMM (4-12)
[2020-06-29 04:05] LABS: Calcium 8.1 MG/DL (8.5-10.1); Osmolality,Calculated 280.3 MOS/KG (273-304); Potassium 3.2 MMOL/L (3.5-5.1)
[2020-06-29 04:55] LABS: Eosinophils 4 % (0-10); Hypochromasia Slight; Lymphocytes 44 % (20-55); Microcytosis Slight; Ovalocytes Slight; Platelet Estimate Adequate; Segmented Neutrophils 46 % (50-85); Total Cells Counted 100
[2020-06-29] MEDS: PANTOPRAZOLE 40 MG TABLET PO SCH (09:23)
[2020-06-29] MEDS: ASPIRIN EC 81 MG TABLET PO SCH (09:23)
[2020-06-29] MEDS: FENOFIBRATE 160 MG TABLET PO SCH (09:23)
[2020-06-29] MEDS: INSULIN GLARGINE 100 UNIT/ML SUBCUT SCH (09:23)
[2020-06-29] MEDS: carvediloL 6.25 MG TABLET PO SCH (09:23)
[2020-06-29] MEDS: TICAGRELOR 90 MG TABLET PO SCH ×2 (09:23→21:30)
[2020-06-29] MEDS: INSULIN REGULAR 100 UNIT/ML SUBCUT SCH ×4 (09:24→21:33)
[2020-06-29] MEDS: SODIUM CHLORIDE 0.9% 1,000 ML IV SCH ×2 (10:11)
[2020-06-29] MEDS ORDERED: POTASSIUM CHLORIDE 20 MEQ TABLET PO ONE (11:45)
[2020-06-29] MEDS ORDERED: hydrALAZINE 20 MG/1 ML VIAL IV PRN (14:37)
[2020-06-29] MEDS ORDERED: DEXTROSE 50% 25 GM/50 ML VIAL IV PRN (16:23)
[2020-06-29] MEDS ORDERED: GLUCAGON 1 MG VIAL IM PRN (16:23)
[2020-06-29] MEDS: carvediloL 12.5 MG TABLET PO SCH (18:02)
[2020-06-29] MEDS ORDERED: oxyCODONE/ACETAMINOPHEN 5-325 MG TABLET PO PRN (21:03)
[2020-06-29] MEDS: ATORVASTATIN 80 MG TABLET PO SCH (21:30)
[2020-06-30 06:02] LABS: Basophils # 0.1 10*3/uL (0.0-0.2); Eosinophils # 0.7 10*3/uL (0.0-0.87); Eosinophils % 6.4 % (0.00-10.9); Hematocrit 36.4 VOL% (35.7-47.0); Hemoglobin 12.2 GM/DL (12.0-16.0); Immature Granulocytes % 0.3 %; Immature Granulocytes Absolute 0.03 #; Lymphocytes # 4.1 10*3/uL (1.4-4.0); Lymphocytes % 37.4 % (21.3-54.2); Mean Corpuscular HGB Conc 33.5 GM/DL (32-36); Mean Corpuscular Volume 92.9 FL (87-102); Mean Platelet Volume 13.3 FL (9.6-12.0); Monocytes % 7.9 % (1.7-12.7); Platelet Count 280 T/CUMM (130-400); Red Blood Count 3.92 MC/CUMM (3.8-5.5); Red Cell Distribution Width 14.4 % (9.3-17.3); White Blood Count 10.8 T/CUMM (4-12)
[2020-06-30 06:25] LABS: Hypochromasia Slight; Microcytosis Slight; Platelet Estimate Normal
[2020-06-30 06:33] LABS: Calcium 8.8 MG/DL (8.5-10.1); Osmolality,Calculated 276.4 MOS/KG (273-304); Potassium 3.4 MMOL/L (3.5-5.1)
[2020-06-30] MEDS: TICAGRELOR 90 MG TABLET PO SCH (08:43)
[2020-06-30] MEDS: PANTOPRAZOLE 40 MG TABLET PO SCH (08:43)
[2020-06-30] MEDS: INSULIN GLARGINE 100 UNIT/ML SUBCUT SCH (08:43)
[2020-06-30] MEDS: ASPIRIN EC 81 MG TABLET PO SCH (08:43)
[2020-06-30] MEDS: carvediloL 12.5 MG TABLET PO SCH (08:43)
[2020-06-30] MEDS: FENOFIBRATE 160 MG TABLET PO SCH (08:43)
[2020-06-30] MEDS: INSULIN REGULAR 100 UNIT/ML SUBCUT SCH ×2 (08:44→11:30)
[2020-06-30] MEDS ORDERED: lisinopriL 20 MG TABLET PO SCH (09:00)
[2020-06-30 12:04] VITALS: BP 151/92
== END 2020-06-30 15:51 | disposition home or self-care (01) ==
LOC: EDBD → EDUNIT# → N.ED 16:29 → INTOOBSV 18:39 → N.EDINP 18:39 → N.5E 06-29 07:39
PROVIDERS: ADMIT Internal Medicine; ATTEND Internal Medicine